=== PATIENT | male | born 1950 | race African-American/Black ===

== ENCOUNTER 2018-08-09 11:54 | Emergency (ER) | payer OTHER ==
[~2018-08-09] VITALS: Ht 188 cm; Wt 72.6 kg
[~2018-08-09 11:54] MED LIST: ALLO300T PO; CARV6.25 PO; CLOP75TA57 PO; IBUP-1027 PO; LISI-338 PO; NITR0.4T22 SL
[2018-08-09] MEDS ORDERED: DIPHTH,PERTUSS(ACELL),TET TOX 0.5 ML DISP.SYRIN. VAX IM ONE (12:30)
--- NOTE | 2018-08-09 12:57 | RAD ---
PQRS Compliance Statement: One or more of the following individualized dose reduction techniques were utilized for this examination: 1. Automated exposure control 2. Adjustment of the mA and/or kV according to patient size 3. Use of iterative reconstruction technique CT HEAD, MAXILLOFACIAL WITHOUT CONTRAST History: HIT HEAD, LACERATION LT EYEBROW, ON PLAVIX, HX CHF Comparison: None. Procedure: Axial images are obtained of the head from the skull base through the vertex without IV contrast. Helical CT imaging of the facial bones is performed without IV contrast. Findings: The ventricles and sulci are normal for the patient's age. No mass-effect, midline shift, hemorrhage or obvious acute infarction is identified. Basilar cisterns are patent. Bone windows demonstrate no significant calvarial abnormality. No acute facial bone fracture. There is medial deviation of the right lamina papyracea that may be due to old injury or is congenital. The visualized paranasal sinuses are clear. Mastoid air cells are well aerated. Left mandible dental cavities. IMPRESSION: 1. No acute intracranial abnormality. 2. No acute facial bone fracture. Electronically signed by: Brent Grigsby MD (08/09/2018 12:55 PM) [id number]
--- NOTE | 2018-08-09 13:02 | PHYS DOC ---
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 Patient has a 3 inch laceration across the left forehead right above his eyebrow. Edges are approximated and bleeding is controlled. Patient denies LOC. She states he has no pain at this time. Patient denies any dizziness, numbness, tingling, shortness of air, neck pain. Patient has no known drug allergies. Patient takes Coreg, aspirin, Lasix, amlodipine, Plavix, atorvastatin, lisinopril, Eplerenone. Review of Systems Review of Systems Constitutional: Denies fever or chills [] Eyes: Denies change in visual acuity, redness, or eye pain [] HENT: Denies nasal congestion or sore throat [] Respiratory: Denies cough or shortness of breath [] Cardiovascular: No additional information not addressed in HPI [] GI: Denies abdominal pain, nausea, vomiting, bloody stools or diarrhea [] : Denies dysuria or hematuria [] Musculoskeletal: Denies back pain or joint pain [] Integument: Denies rash or skin lesions [] Neurologic: Denies headache, focal weakness or sensory changes [] Endocrine: Denies polyuria or polydipsia [] All other systems were reviewed and found to be within normal limits, except as documented in this note. Current Medications Current Medications Current Medications Medications (Trade) Dose Ordered Sig/Lex Start Time Stop Time Status Last Admin Dose Admin Diphtheria/ Tetanus/Acell Pertussis (Boostrix) 0.5 ml ONCE ONCE 08/09/18 12:30 08/09/18 12:31 DC 08/09/18 12:48 0.5 ML Lidocaine/ Epinephrine (LIDOCAINE 1%-EPI 1:100,000 Multi-Dose) 20 ml 1X ONCE 08/09/18 13:15 08/09/18 13:16 DC 08/09/18 13:08 20 ML Allergies Allergies Allergies Coded Allergies Type Severity Reaction Last Updated Verified No Known Drug Allergies 07/29/15 No Physical Exam Physical Exam Constitutional: Well developed, well nourished, no acute distress, non-toxic appearance. [] HENT: Normocephalic, atraumatic, bilateral external ears normal, oropharynx moist, no oral exudates, nose normal. [] Eyes: PERRLA, EOMI, conjunctiva normal, no discharge. [] Neck: Normal range of motion, no tenderness, supple, no stridor. [] Cardiovascular:Heart rate regular rhythm, no murmur [] Lungs & Thorax: Bilateral breath sounds clear to auscultation [] Abdomen: Bowel sounds normal, soft, no tenderness, no masses, no pulsatile masses. [] Skin: Warm, dry, no erythema, no rash. [] Back: No tenderness, no CVA tenderness. [] Extremities: No tenderness, no cyanosis, no clubbing, ROM intact, no edema. [] Neurologic: Alert and oriented X 3, normal motor function, normal sensory function, no focal deficits noted. [] Psychologic: Affect normal, judgement normal, mood normal. [] Current Patient Data Vital Signs Vital Signs Date Time Temp Pulse Resp B/P (MAP) Pulse Ox O2 Delivery O2 Flow Rate FiO2 08/09/18 14:00 66 132/79 (96 100 Room Air 08/09/18 11:54 97.9 18 97.9 EKG EKG [] Radiology/Procedures Radiology/Procedures CT HEAD AND MAXILLOFACIAL Impressions: [facility] [address] [place] [address] IMAGING REPORT Signed PATIENT: ELAINA ENGLAND ACCOUNT: [id number] : 1950 LOCATION: ER AGE: 67 SEX: M EXAM STATUS: REG ER ORD. PHYSICIAN: LACI SERNA APRN REASON: HIT HEAD, LACERATION LT EYEBROW, ON PLAVIX PROCEDURE: CT HEAD AND MAXILLOFACIAL WO RS Compliance Statement: One or more of the following individualized dose reduction techniques were utilized for this examination: 1. Automated exposure control 2. Adjustment of the mA and/or kV according to patient size 3. Use of iterative reconstruction technique CT HEAD, MAXILLOFACIAL WITHOUT CONTRAST History: HIT HEAD, LACERATION LT EYEBROW, ON PLAVIX, HX CHF Comparison: None. Procedure: Axial images are obtained of the head from the skull base through the vertex without IV contrast. Helical CT imaging of the facial bones is performed without IV contrast. Findings: The ventricles and sulci are normal for the patient's age. No mass-effect, midline shift, hemorrhage or obvious acute infarction is identified. Basilar cisterns are patent. Bone windows demonstrate no significant calvarial abnormality. No acute facial bone fracture. There is medial deviation of the right lamina papyracea that may be due to old injury or is congenital. The visualized paranasal sinuses are clear. Mastoid air cells are well aerated. Left mandible dental cavities. IMPRESSION: 1. No acute intracranial abnormality. 2. No acute facial bone fracture. 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 Patient has a 3 inch laceration across the left forehead right above his eyebrow. Edges are approximated and bleeding is controlled. Patient denies LOC. She states he has no pain at this time. Patient denies any dizziness, numbness, tingling, shortness of air, neck pain. Patient has no known drug allergies. Patient takes Coreg, aspirin, Lasix, amlodipine, Plavix, atorvastatin, lisinopril, Eplerenone. She has no facial bone tenderness or head tenderness. Patient has no bony tenderness of his C-spine. Patient has range of motion in his neck. Patient is neurologically intact. PERRLA. Alert and oriented. Lungs are clear in all lobes. Heart rate regular without murmur. CT of head and face show 1. No acute intracranial abnormality. 2. No acute facial bone fracture. Patient's wound is cleaned out with sterile water and Betadine. Patient is numbed up with lidocaine with epi. Patient to follow up here or with primary care for suture removal in 7 days. Patient is educated on symptoms of infection , redness, and to return is symptoms begin. Laceration Repair by me: Anesthesia: 1% lidocaine locally Location: Left above eye brow Tendon/Joint/Nerves: No injury Foreign body: None detected after copious irrigation and exploration Technique: 10 Simple Interrupted Sutures with 3-0 Ethicon Complexity: No subcutaneous sutures/mucosal repair/edge excision Post Closure Length: 7 cm Patient's bleeding was easily controlled in the department and there is no indication of anemia. No evidence of compartment syndrome, neurologic injury, vascular injury, open joint, tendon laceration, or foreign body. Patient is appropriate for outpatient follow up. 48 hour wound check. Scar minimization instructions given. [] Dragon Disclaimer Dragon Disclaimer This electronic medical record was generated, in whole or in part, using a voice recognition dictation system. Departure Departure Impression: Primary Impression: Laceration Disposition: 01 HOME, SELF-CARE Condition: STABLE Referrals: NO PCP (PCP) Patient Instructions: Facial Laceration Additional Instructions: FOLLOW UP WITH YOUR PRIMARY CARE OR ED IN 7 DAYS FOR SUTURE REMOVAL. COME BACK TO ED IF SIGNS OF INFECTION. Scripts Hydrocodone/Apap 5-325 (NORCO 5-325 TABLET) 1 Each Tablet 1 TAB PO PRN Q6HRS PRN for PAIN, #5 TAB 0 Refills Prov: LACI SERNA APRN 08/09/18 LACI SERNA APRN Aug 09, 2018 13:02
[2018-08-09] MEDS ORDERED: LIDOCAINE 1%/EPI 1:100,000 20 ML VIAL. INJ ONE (13:15)
[2018-08-09 14:00] VITALS: BP 132/79
[2018-08-09] MEDS ORDERED: HYDR-971 PO (14:00)
== END 2018-08-09 14:13 | disposition home or self-care (01) ==
LOC: ER 11:54 → EDSEX 11:54 → ER 14:13
DX: S01.81XA Laceration without foreign body of other part of head, initial encounter (principal); I50.9 Heart failure, unspecified; I11.0 Hypertensive heart disease with heart failure; I25.10 Atherosclerotic heart disease of native coronary artery without angina pectoris; I25.2 Old myocardial infarction; Z95.5 Presence of coronary angioplasty implant and graft; Z95.1 Presence of aortocoronary bypass graft; W22.8XXA Striking against or struck by other objects, initial encounter; Y93.89 Activity, other specified; Y92.89 Other specified places as the place of occurrence of the external cause; Y99.8 Other external cause status
CPT/HCPCS: 12014; 70450; 70486; 90471; 90715; 99284; J3490

== ENCOUNTER 2018-08-16 14:51 | Emergency (ER) | payer OTHER ==
[~2018-08-16] VITALS: Ht 188 cm; Wt 72.6 kg
[~2018-08-16 14:51] MED LIST changes: +HYDR-971 PO
[2018-08-16 15:04] VITALS: BP 132/66
--- NOTE | 2018-08-16 15:31 | PHYS DOC ---
Past Medical History Past Medical History: CAD, CHF, Hypertension, [place], Other Additional Past Medical Histor: DISCOID Lupus,"BAD KIDNEYS" Past Surgical History: Coronary Bypass Surgery, Other Additional Past Surgical Histo: 3 STENTS Additional Information: quit smoking 2003 Alcohol Use: Occasionally Drug Use: None Adult General Chief Complaint Chief Complaint: SUTURE/STAPLE REMOVAL HPI HPI Patient is a 67 year old AA male who presents to the emergency department with the need for suture removal from his left eyebrow. Patient states that he was here one week ago and had 10 sutures placed in his left eyebrow. He denies any fever, drainage, pain, or warmth at the site. Review of Systems Review of Systems Constitutional: Denies fever or chills [] Eyes: Denies change in visual acuity, redness, or eye pain [] Integument: Denies rash or, reports laceration with 10 sutures to the left eyebrow Neurologic: Denies headache, focal weakness or sensory changes [] All other systems were reviewed and found to be within normal limits, except as documented in this note. Allergies Allergies Allergies Coded Allergies Type Severity Reaction Last Updated Verified No Known Drug Allergies 07/29/15 No Physical Exam Physical Exam Constitutional: Well developed, well nourished, no acute distress, non-toxic appearance. [] HENT: Normocephalic, atraumatic, bilateral external ears normal, oropharynx moist, no oral exudates, nose normal. [] Eyes: PERRLA, conjunctiva normal, no discharge. [] Skin: Warm, dry, no erythema, no rash; laceration located to the left eyebrow, [address], the edges are well approximated no redness or drainage[] Neurologic: Alert and oriented X 3, normal motor function, normal sensory function, no focal deficits noted. [] Psychologic: Affect normal, judgement normal, mood normal. [] Current Patient Data Vital Signs Vital Signs Date Time Temp Pulse Resp B/P (MAP) Pulse Ox O2 Delivery O2 Flow Rate FiO2 08/16/18 15:04 98.2 66 18 132/66 (88) 96 Room Air 98.2 EKG EKG [] Radiology/Procedures Radiology/Procedures Suture Removal by me: 10 Sutures removed with tweezers and scissors without incident from left eye brow Wound shows no evidence of infection, foreign body, neurologic injury, vascular injury, open joint or tendon laceration. 4 Steri-Strips were placed to the lateral portion of the laceration to just enhance wound healing. Patient to follow up PRN.[] Course & Med Decision Making Course & Med Decision Making Pertinent Labs and Imaging studies reviewed. (See chart for details) Suture removal Sutures were removed as described above, patient was advised Steri-Strips will come off on their own in a few days to not pull them off. Apply antibiotic ointment to the site twice a day to help with healing. Tylenol or ibuprofen as needed for pain. Follow-up with your primary care doctor as needed. Return to the ER if your symptoms worsen. []Patient verbalized an understanding of home care, medications, follow-up, and return to ED instructions and was in agreement with the plan of care. Staff Physician Addendum: I was working in the ER during the course of this patient's visit. I was available for consultation as needed, but I was not directly involved in the care of this patient. Dragon Disclaimer Dragon Disclaimer This electronic medical record was generated, in whole or in part, using a voice recognition dictation system. Departure Departure Impression: Primary Impression: Encounter for removal of sutures Disposition: HOME, SELF-CARE Condition: STABLE Referrals: NO PCP (PCP) Patient Instructions: Suture Removal-Brief Additional Instructions: Steri-Strips will come off on their own in a few days to not pull them off. Apply antibiotic ointment to the site twice a day to help with healing. Tylenol or ibuprofen as needed for pain. Follow-up with your primary care doctor as needed. Return to the ER if your symptoms worsen. [] SANJANA WATERS APRN Aug 16, 2018 15:31 RUTHIE RODRIGUEZ MD Aug 20, 2018 18:17
== END 2018-08-16 15:33 | disposition home or self-care (01) ==
LOC: ER 14:51
DX: S01.112D Laceration without foreign body of left eyelid and periocular area, subsequent encounter (principal); Z48.02 Encounter for removal of sutures; I11.0 Hypertensive heart disease with heart failure; I50.9 Heart failure, unspecified; I25.10 Atherosclerotic heart disease of native coronary artery without angina pectoris; Z95.1 Presence of aortocoronary bypass graft; Z87.891 Personal history of nicotine dependence; X58.XXXD Exposure to other specified factors, subsequent encounter
CPT/HCPCS: 99281